=== PATIENT | male | born 1950 | race Caucasian/White ===

== ENCOUNTER → 2017-09-10 | Outpatient (CLI) | payer BC, MEDICARE ==
[~2017-09-10] MED LIST: ALPR1TAB7 PO; ASCO-262 PO; ASCO1TAB12 PO; ASPI-983 PO; ATOR40TA70 PO; CHOL10007 PO; CRAN400T3 PO; FLUT16SP22 NS; LISI10TA2 PO; MELO15TA39 PO; MULT-35 PO; MULT-974 PO; OMEP20CA12 PO; OMEP20TA33 PO; PRED5DRO17 OU; SAW450CA7 PO; TAMS0.4C98 PO; TURM500C7 PO; TURM538C PO
== END ==
LOC: CARD 09:23
PROVIDERS: ATTEND Internal Medicine Interventional Cardiology
DX: R07.9 Chest pain, unspecified (principal); I10 Essential (primary) hypertension; R06.02 Shortness of breath; I08.0 Rheumatic disorders of both mitral and aortic valves
CPT/HCPCS: 93306

== ENCOUNTER 2017-10-15 08:26 | Day surgery (SDC) | payer BC, MEDICARE ==
[2017-10-15] VITALS (8 sets, daily range): BP systolic 137–165; BP diastolic 78–87
[~2017-10-15] VITALS: Ht 167.6 cm; Wt 77.1 kg
[~2017-10-15 08:26] MED LIST changes: -ALPR1TAB7 PO; -ASCO-262 PO; -ASCO1TAB12 PO; -ASPI-983 PO; -ATOR40TA70 PO; -CHOL10007 PO; -FLUT16SP22 NS; -LISI10TA2 PO; -MULT-35 PO; -OMEP20CA12 PO; -PRED5DRO17 OU; -TAMS0.4C98 PO; -TURM538C PO
[2017-10-15] MEDS ORDERED: HEParin (CATH LAB) 1,000 ML IV ONE (08:29)
[2017-10-15] MEDS ORDERED: NS IV 1000 ML 1,000 ML ONE (08:29)
[2017-10-15] MEDS ORDERED: LIDOCAINE 1% INJ 20 ML 20 ML VIAL ONE (08:29)
--- OUTSIDE RECORDS SUMMARY | 2017-10-15 08:29 | XMS REPORT | Continuity of Care Document ---
Author Author [facility] Organization [facility] Address Unknown Phone Unavailable Allergies Active Description Code Type Severity Reaction Onset Reported/Identified Relationship to Patient Clinical Status Yes No Known Drug Allergies [id number] Drug Allergy Unknown N/A 02/28/2016 Medications There is no data. Problems Date Dx Coded Attending Type Code Diagnosis Diagnosed By 10/09/2014 Ot 715.36 10/09/2014 Ot 717.3 10/09/2014 Ot 719.06 10/09/2014 Ot 715.36 10/09/2014 Ot 717.3 10/09/2014 Ot 719.06 10/09/2014 Ot 715.36 10/09/2014 Ot 717.3 10/09/2014 Ot 719.06 10/10/2014 JULIA VICKERS, BRENNA R Ot 414.00 10/10/2014 JULIA VICKERS, BRENNA R Ot 719.45 11/07/2014 JULIA VICKERS, BRENNA R Ot 414.00 11/07/2014 JULIA VICKERS, BRENNA R Ot 719.45 11/07/2014 JULIA VICKERS, BRENNA R Ot 719.45 11/07/2014 JULIA VICKERS, BRENNA R Ot 729.5 06/20/2015 Ot 715.36 06/20/2015 Ot 717.3 06/20/2015 Ot 719.06 06/20/2015 JULIA VICKERS, BRENNA R Ot 414.00 06/20/2015 JULIA VICKERS, BRENNA R Ot 719.45 06/20/2015 JULIA VICKERS, BRENNA R Ot 719.45 06/20/2015 JULIA VICKERS, BRENNA R Ot 729.5 02/28/2016 USMAN VICKERS, WENCESLAO Enriquez Ot S01.81XA LACERATION W/O FOREIGN BODY OF OTH PART 02/28/2016 USMAN VICKERS, WENCESLAO Enriquez Ot S86.812A STRAIN OF MUSC/TEND AT LOWER LEG LEVEL, 02/28/2016 WENCESLAO MARY MD Ot W22.09XA STRIKING AGAINST OTHER STATIONARY OBJECT 02/28/2016 WENCESLAO MARY MD Ot Y92.512 SUPERMARKET, STORE OR MARKET PLACE 02/28/2016 WENCESLAO MARY MD Ot Y93.02 ACTIVITY, RUNNING 02/28/2016 WENCESLAO MARY MD Ot Y99.0 CIVILIAN ACTIVITY DONE FOR INCOME OR PAY 02/28/2016 BRENNA DUMONT MD R Ot 414.00 CORON ATHEROSCLER NOS TYPE VESSEL, NATIV 02/28/2016 BRENNA DUMONT MD R Ot 719.45 JOINT PAIN-PELVIS 02/28/2016 BRENNA DUMONT MD R Ot 719.45 JOINT PAIN-PELVIS 02/28/2016 BRENNA DUMONT MD R Ot 729.5 PAIN IN LIMB 02/29/2016 WENCESLAO MARY MD Ot S01.81XA LACERATION W/O FOREIGN BODY OF OTH PART 02/29/2016 WENCESLAO MARY MD Ot S86.812A STRAIN OF MUSC/TEND AT LOWER LEG LEVEL, 02/29/2016 WENCESLAO MARY MD Ot W22.09XA STRIKING AGAINST OTHER STATIONARY OBJECT 02/29/2016 WENCESLAO MARY MD Ot Y92.512 SUPERMARKET, STORE OR MARKET PLACE 02/29/2016 WENCESLAO MARY MD Ot Y93.02 ACTIVITY, RUNNING 02/29/2016 WENCESLAO MARY MD Ot Y99.0 CIVILIAN ACTIVITY DONE FOR INCOME OR PAY 03/07/2016 BRENNA DUMONT MD R Ot 414.00 CORON ATHEROSCLER NOS TYPE VESSEL, NATIV 03/07/2016 BRENNA DUMONT MD R Ot 719.45 JOINT PAIN-PELVIS 03/07/2016 BRENNA DUMONT MD R Ot 719.45 JOINT PAIN-PELVIS 03/07/2016 BRENNA DUMONT MD R Ot 729.5 PAIN IN LIMB 03/07/2016 BRENNA DUMONT MD R Ot 414.00 CORON ATHEROSCLER NOS TYPE VESSEL, NATIV 03/07/2016 SEGLIE MD, BRENNA R Ot 719.45 JOINT PAIN-PELVIS 03/07/2016 BRENNA DUMONT MD R Ot 719.45 JOINT PAIN-PELVIS 03/07/2016 BRENNA DUMONT MD R Ot 729.5 PAIN IN LIMB 11/28/2016 JULIA VICKERS, BRENNA R Ot 414.00 CORON ATHEROSCLER NOS TYPE VESSEL, NATIV 11/28/2016 BRENNA DUMONT MD R Ot 719.45 JOINT PAIN-PELVIS 11/28/2016 BRENNA DUMONT MD R Ot 719.45 JOINT PAIN-PELVIS 11/28/2016 BRENNA DUMONT MD R Ot 729.5 PAIN IN LIMB 08/26/2017 BRENNA DUMONT MD R Ot 414.00 CORON ATHEROSCLER NOS TYPE VESSEL, NATIV 08/26/2017 BRENNA DUMONT MD R Ot 719.45 JOINT PAIN-PELVIS 08/26/2017 BRENNA DUMONT MD R Ot 719.45 JOINT PAIN-PELVIS 08/26/2017 BRENNA DUMONT MD R Ot 729.5 PAIN IN LIMB 09/07/2017 BRENNA DUMONT MD R Ot 414.00 CORON ATHEROSCLER NOS TYPE VESSEL, NATIV 09/07/2017 BRENNA DUMONT MD R Ot 719.45 JOINT PAIN-PELVIS 09/07/2017 BRENNA DUMONT MD R Ot 719.45 JOINT PAIN-PELVIS 09/07/2017 BRENNA DUMONT MD R Ot 729.5 PAIN IN LIMB 09/07/2017 BRENNA DUMONT MD R Ot 414.00 CORON ATHEROSCLER NOS TYPE VESSEL, NATIV 09/07/2017 BRENNA DUMONT MD R Ot 719.45 JOINT PAIN-PELVIS 09/07/2017 BRENNA DUMONT MD R Ot 719.45 JOINT PAIN-PELVIS 09/07/2017 BRENNA DUMONT MD R Ot 729.5 PAIN IN LIMB 09/10/2017 BRENNA DUMONT MD R Ot 414.00 CORON ATHEROSCLER NOS TYPE VESSEL, NATIV 09/10/2017 SUSHMA DUMONT MDYD R Ot 719.45 JOINT PAIN-PELVIS 09/10/2017 BRENNA DUMONT MD R Ot 719.45 JOINT PAIN-PELVIS 09/10/2017 BRENNA DUMONT MD R Ot 729.5 PAIN IN LIMB 09/11/2017 Aileen CAPONE MD Ot I08.0 RHEUMATIC DISORDERS OF BOTH MITRAL AND A 09/11/2017 Aileen CAPONE MD Ot I10 ESSENTIAL (PRIMARY) HYPERTENSION 09/11/2017 Aileen CAPONE MD Ot R06.02 SHORTNESS OF BREATH 09/11/2017 Aileen CAPONE MD Ot R07.9 CHEST PAIN, UNSPECIFIED 09/11/2017 Aileen CAPONE MD Ot I08.0 RHEUMATIC DISORDERS OF BOTH MITRAL AND A 09/11/2017 Aileen CAPONE MD Ot I10 ESSENTIAL (PRIMARY) HYPERTENSION 09/11/2017 Aileen CAPONE MD Ot R06.02 SHORTNESS OF BREATH 09/11/2017 Aileen CAPONE MD Ot R07.9 CHEST PAIN, UNSPECIFIED 09/23/2017 Aileen CAPONE MD Ot I08.0 RHEUMATIC DISORDERS OF BOTH MITRAL AND A 09/23/2017 Aileen CAPONE MD Ot I10 ESSENTIAL (PRIMARY) HYPERTENSION 09/23/2017 Aileen CAPONE MD Ot R06.02 SHORTNESS OF BREATH 09/23/2017 Aileen CAPONE MD Ot R07.9 CHEST PAIN, UNSPECIFIED Procedures There is no data. Results There is no data. Encounters ACCT No. Visit Date/Time Discharge Status Pt. Type Provider Facility Loc./Unit Complaint [id number] 09/10/2017 09:23:00 09/10/2017 23:59:59 CLS Outpatient Aileen CAPONE MD [facility] CARD I35.0 AORTIC STENOSIS [id number] 03/14/2016 10:01:00 03/14/2016 23:59:59 CLS Outpatient TATIANNA RODRIGUEZ LACQUER MAKER [facility] RAD SPRAIN LT KNEE [id number] 03/11/2016 14:53:00 03/11/2016 23:59:59 CLS Outpatient JENNIFER TATIANNA LACQUER MAKER [facility] OCC FELL [id number] 02/28/2016 06:05:00 02/28/2016 07:06:00 DIS Emergency USMAN VICKERS, WENCESLAO Enriquez [facility] ER LAC ON RT BROW,LEFT KNEE PAIN [id number] 10/11/2014 14:13:00 10/11/2014 23:59:59 CLS Outpatient BRENNA DUMONT MD [facility] RAD RT HIP/LEG PAIN SEVERE [id number] 10/09/2014 14:59:00 10/09/2014 23:59:59 CLS Outpatient BRENNA DUMONT MD [facility] CARD LOW PERCENTAGE OF SYSTOLIC , PAIN IN RT HIP [id number] 10/15/2017 10:00:00 PEN Preadmit Aileen CAPONE MD [facility] CATH SYMPTOMATIC SEVER AORTIC STENOSIS [id number] 03/21/2010 11:46:00 Document Registration
[2017-10-15] MEDS ORDERED: NS IV 1000 ML 1,000 ML IV SCH ×2 (09:00→12:20)
[2017-10-15 09:05] LABS: HEMOGLOBIN 13.7 G/DL (13.3-17.7); RED BLOOD COUNT 4.57 10^6/uL (4.35-5.85)
[2017-10-15 09:06] LABS: RED CELL DISTRIBUTION WIDTH 12.5 % (10.0-14.5)
[2017-10-15 09:13] LABS: PROTHROMBIN TIME PATIENT 13.2 SEC (12.2-14.7)
[2017-10-15] MEDS ORDERED: PRED5DRO17 OU (09:16)
[2017-10-15] MEDS ORDERED: LISI10TA2 PO (09:16)
[2017-10-15] MEDS ORDERED: ASCO-262 PO (09:16)
[2017-10-15] MEDS ORDERED: CHOL10007 PO (09:16)
[2017-10-15] MEDS ORDERED: TURM538C PO (09:16)
[2017-10-15] MEDS ORDERED: ASCO1TAB12 PO (09:16)
[2017-10-15] MEDS ORDERED: MULT-35 PO (09:19)
[2017-10-15] MEDS ORDERED: MELO15TA39 PO (09:19)
[2017-10-15] MEDS ORDERED: ALPR1TAB7 PO (09:19)
[2017-10-15] MEDS ORDERED: OMEP20CA12 PO (09:19)
[2017-10-15] MEDS ORDERED: TAMS0.4C98 PO (09:19)
[2017-10-15] MEDS ORDERED: FLUT16SP22 NS (09:19)
[2017-10-15 09:20] LABS: ALANINE AMINOTRANSFERASE 20 U/L (0-55); ALBUMIN 4.4 GM/DL (3.2-4.5); ALKALINE PHOSPHATASE 54 U/L (40-136); BILIRUBIN,TOTAL 0.7 MG/DL (0.1-1.0); BUN/CREATININE RATIO 14; CALCIUM 9.5 MG/DL (8.5-10.1); CARBON DIOXIDE 24 MMOL/L (21-32); CHLORIDE 106 MMOL/L (98-107); CHOLESTEROL 195 MG/DL (< 200); CREATININE SERUM 0.92 MG/DL (0.60-1.30); GFR ESTIMATED > 60; GLUCOSE 88 MG/DL (70-105); HDL CHOLESTEROL 43 MG/DL (40-60); POTASSIUM 4.5 MMOL/L (3.6-5.0); SODIUM 140 MMOL/L (135-145); TOTAL PROTEIN 7.6 GM/DL (6.4-8.2); TRIGLYCERIDES 80 MG/DL (<150); VLDL CHOLESTEROL 16 MG/DL (5-40)
[2017-10-15] MEDS ORDERED: ADENOSINE 3 MG/1 ML (ADENOSCAN) 30ML VIAL IV ONE (10:27)
--- NOTE | 2017-10-15 11:39 | Cardiac Procedure Note-CS/ASA ---
Pre-Procedure Note Pre-Op Procedure Note H&P Reviewed The H&P was reviewed, patient examined and no changes noted. Date H&P Reviewed: October 15, 2017 Time H&P Reviewed: 09:15 Conscious Sedation Pre-Proced Time Reviewed: 09:15 ASA Class: 3 Airway Mallampati Classification: ([place] appropriate class) I. II. III, IV Lungs Heart ASA score ASA 1: a normal healthy patient ASA 2: a patient with a mild systemic disease (mid diabetes, controlled hypertension, obesity ASA 3: a patient with a severe systemic disease that limits activity (angina , COPD, prior Myocardial infarction) ASA 4: a patient with an incapacitating disease that is a constant threat to life (CHF, renal failure) ASA 5: a moribund patient not expected to survive 24 hrs. (ruptured aneurysm) ASA 6: a declared brain patient whose organs are being harvested. For emergent operations, add the letter E after the classification Grade 1 Sedation Plan: Analgesia, Amnesia, Plan communicated to team members, Discussed options with patient/fam, Discussed risks with patient/fam Note The patient is an appropriate candidate to undergo the planned procedure, sedation, and anesthesia. The patient immediately re-assessed prior to indication. Aileen CAPONE MD October 15, 2017 11:39 am
--- NOTE | 2017-10-15 11:48 | Coronary Angiography Report ---
Coronary Angiography Report DATE OF PROCEDURE: 10/15/17 INDICATION: Severe aortic stenosis, precardiac surgery evaluation. PREOPERATIVE DIAGNOSIS: Severe aortic stenosis, precardiac surgery evaluation. POSTOPERATIVE DIAGNOSIS: Severe aortic stenosis, severe 2 vessel disease. HISTORY: This is a 67-year-old gentleman with complain of burning in the chest and shortness of breath. Echocardiogram showed severe aortic stenosis. Coronary angiography is recommended for preoperative evaluation. Therefore, the patient was scheduled for coronary angiography. PROCEDURES PERFORMED: 1.Coronary angiography. 2.Left heart catheterization. 3. Aortic arch angiography for suitability of bypass grafts. 4. FFR to the LAD. COMPLICATIONS: None. SPECIMENS: None. ESTIMATED BLOOD LOSS: 10 mL ANESTHESIA: Conscious sedation ANTICOAGULATION: IV heparin CONTRAST: 141 mL. FLUOROSCOPY: 14.5 minutes. FLOUROSCOPY DOSE: 630 mgy. PROCEDURE DETAILS: The patient is a 67 male and was brought to the geoscience laboratory technician after informed consent was taken. All the risks and complications were explained in detail; this included the risk of bleeding, vascular damage, stroke , CT and even . The patient was draped and prepped in the usual sterile fashion. Access was gained in the right radial artery with a 6 Welsh sheath. Left coronary angiography was performed with the Mannford catheter. Right coronary angiography, aortic arch angiography and left heart catheterization were performed with the JR4 catheter. FINDINGS: 1.Left main: Patent. 2.LAD: Moderate to severe ostial LAD stenosis. Stenosis severity is 75 percent. There is another moderate to severe stenosis in the midsegment. Stenosis severity is 70 percent. Transapical vessel. 3.Left circumflex artery: Ramus intermedius is patent. First OM has severe stenosis. Stenosis severity is 95 percent. 4.RCA: Mild to moderate mid disease. Moderate to severe distal PDA stenosis. 5.Left heart catheterization: Aortic pressure 122/61 mmHg. LV pressure 185/7 mmHg. LVEDP 22 mmHg. Normal LV function with no wall motion abnormalities. Significant gradient across the aortic valve. Mean gradient of 74 mmHg. 6. Aortic arch angiography was performed to rule out aneurysm and suitability of bypass grafts. No aneurysm or dissection noted. Patent proximal segments of the large arteries including brachiocephalic, left common carotid artery and left subclavian artery. Recommendations: FFR to the LAD is recommended. FFR details: Mannford catheter 6 Welsh, IV heparin and pressure wire. ACT was performed once with ACT of over 192 seconds. 1000 units of IV heparin was given immediately after. Initially 4800 units of IV heparin were given. The lesions were easily crossed with a FFR wire. The FFR wire was placed in the distal LAD. Baseline FFR was 0.91. Adenosine was started at 140 g per KG per minute for 2-1/2 minutes. Lowest FFR was 0.80 which is significant. The wire was withdrawn and post FFR angiography did not show any vascular complication. The patient tolerated the procedure well and did not have any complications. Vascular band was placed at the site of the right radial artery. CONCLUSIONS: 1. Severe aortic stenosis and severe LAD and first OM stenosis. 2. Cardiac surgery evaluation. Luisito Elizondo MD, FACP, FACC, [facility] Interventional Cardiology Aileen ELIZONDO MD October 15, 2017 11:48 am
--- NOTE | 2017-10-15 11:50 | Discharge Inst-Post CATH ---
Discharge Inst-CATH Post Cardiac Cath D/C Inst Follow Up/Plan Dr. Elizondo - one month after surgery. CARDIAC CATH DISCHARGE INSTRUCTIONS *Hold Metformin for 48 hours post heart cath. ACTIVITY * Go Home directly and rest. * Limit activity of the leg (or wrist if it was used) for 7 days including aerobics, swimming, jogging, bicycling, etc. * Restrict stair-climbing for 7 days if possible, if not, climb up with your non -cath leg, then bring together on the same step. * Avoid lifting, pushing, pulling or excessive movement of the affected extremity for 7 days. * Customary sexual activity may be resumed after 2 days-use caution not to use a position that strains or causes pain to the affected extremity. * No driving for 24 hours. * NO SMOKING. * Avoid straining for bowel movements for 7 days. * Gentle walking on level ground is allowed. * Returning to work will depend on the type of procedure and the results. Your doctor will discuss this with you. CALL YOUR DOCTOR FOR ANY OF THE FOLLOWING: *If bleeding from the puncture site occurs- Apply gentle pressure to site with clean cloth and call your doctor or EMS. * If a knot or lump forms under the skin, increases in size, or causes pain. * If bruising appears to be worsening or moving further down your leg instead of disappearing. * Temperature above 101 F. CARE OF YOUR GROIN INCISION; * Bruising or purple discoloration of the skin near the puncture site is common. * You may shower only, no bathtub bathing for 5 days. Be careful to avoid slipping as your leg may feel stiff. * If a closure device was used on your femoral artery, please see the attached guide regarding care of the device and your leg. * REMOVE the dressing from your groin the next day after your procedure in the shower. CARE OF YOUR WRIST INCISION; * Bruising or purple discoloration of the skin near the puncture site is common. * You may shower. * DO NOT submerge wrist. * Remove dressing in 24 hours. Aileen ELIZONDO MD October 15, 2017 11:50 am
[2017-10-15] MEDS ORDERED: ATOR40TA70 PO (11:51)
[2017-10-15] MEDS ORDERED: ASPI-983 PO (11:52)
--- NOTE | 2017-10-15 11:59 | Cardiology Discharge Summary ---
Diagnosis/Chief Complaint Date of Admission 10/15/2017 Date of Discharge 10/15/2017 Admission Diagnosis Severe aortic stenosis Final/Discharge Diagnosis Severe aortic stenosis, severe 2 vessel CAD. Chief Complaint/HPI Chief Complaint/HPI This is a 67-year-old gentleman with complains of shortness of breath and chest burning. Echocardiogram showed severe aortic stenosis. Coronary angiography is recommended pre-cardiac surgery. Discharge Summary Procedures Coronary angiography shows moderate to severe LAD stenosis, severe by FFR. FFR 0.80. Severe first OM artery stenosis. Stenosis severity 95 percent. Mild to moderate mid RCA disease. Severe aortic stenosis. Normal LV function Discharge Physical Examination Normal cardiovascular examination. Normal respiratory examination. Hospital Course Unremarkable. Pending Labs Laboratory Tests 10/15/17 08:53: White Blood Count 5.0, Red Blood Count 4.57, Hemoglobin 13.7, Hematocrit 40, Mean Corpuscular Volume 88, Mean Corpuscular Hemoglobin 30, Mean Corpuscular Hemoglobin Concent 34, Red Cell Distribution Width 12.5, Platelet Count 259, Mean Platelet Volume 10.0, Prothrombin Time 13.2, INR Comment 1.0, Activated Partial Thromboplast Time 31, Sodium Level 140, Potassium Level 4.5, Chloride Level 106, Carbon Dioxide Level 24, Anion Gap 10, Blood Urea Nitrogen 13, Creatinine 0.92, Estimat Glomerular Filtration Rate > 60, BUN/Creatinine Ratio 14, Glucose Level 88, Calcium Level 9.5, Total Bilirubin 0.7, Aspartate Amino Transf (AST/SGOT) 19, Alanine Aminotransferase (ALT/SGPT) 20, Alkaline Phosphatase 54, Total Protein 7.6, Albumin 4.4, Triglycerides Level 80, Cholesterol Level 195, LDL Cholesterol Direct 145, VLDL Cholesterol 16, HDL Cholesterol 43 Discussion & Recommendations Discussion Discharge instructions discussed at length with the patient and family. Patient will be started on aspirin, statin. Continue lisinopril. Beta jamie will not be given since patient was borderline hypotensive. Already on lisinopril. Dicharge Diet: Cardiac Diet Activity as Tolerated: Yes Home Medications Reviewed patient Home Medication Reconciliation performed by pharmacy medication reconciliations geology technician and/or nursing. Patients Allergies have been reviewed. Discharge Home Medications: Reviewed and agree with Discharge Medication list on patient's Discharge Instruction sheet Condition at discharge stable Instructions to patient/family Dr. Elizondo - one month after surgery. Aileen ELIZONDO MD October 15, 2017 11:59 am
[2017-10-15] MEDS ORDERED: PATIENT MAY USE OWN MEDS, ALL PO SCH (12:30)
== END 2017-10-15 13:49 | disposition home or self-care (01) ==
LOC: CATH 08:26 → SURG 11:37 → CATH 13:49
PROVIDERS: ATTEND Internal Medicine Interventional Cardiology
DX: I25.10 Atherosclerotic heart disease of native coronary artery without angina pectoris (principal); I35.0 Nonrheumatic aortic (valve) stenosis; I10 Essential (primary) hypertension; I34.0 Nonrheumatic mitral (valve) insufficiency; F12.90 Cannabis use, unspecified, uncomplicated; M19.91 Primary osteoarthritis, unspecified site; Z79.82 Long term (current) use of aspirin; Z79.899 Other long term (current) drug therapy
CPT/HCPCS: 36415; 36430; 80053; 80061; 85027; 85347; 85610; 85730; 87081; 93005; 93459

== ENCOUNTER 2018-03-22 10:11 | Outpatient (RCR) | payer BC, MEDICARE ==
[~2018-03-22 10:11] MED LIST changes: +ALPR1TAB7 PO; +ASCO-262 PO; +ASCO1TAB12 PO; +ASPI-983 PO; +ATOR40TA70 PO; +CHOL10007 PO; +FLUT16SP22 NS; +LISI10TA2 PO; +MULT-35 PO; +OMEP20CA12 PO; +PRED5DRO17 OU; +TAMS0.4C98 PO; +TURM538C PO
== END 2018-03-28 | disposition home or self-care (01) ==
LOC: CR 10:11
PROVIDERS: ATTEND Internal Medicine Interventional Cardiology
DX: Z48.812 Encounter for surgical aftercare following surgery on the circulatory system (principal); Z95.1 Presence of aortocoronary bypass graft; Z95.2 Presence of prosthetic heart valve
CPT/HCPCS: 93798

== ENCOUNTER 2018-04-30 09:30 | Outpatient (RCR) | payer BC, MEDICARE | END 2018-05-19 | disposition home or self-care (01) | LOC: CR 09:30 | PROVIDERS: ATTEND Internal Medicine Interventional Cardiology | DX: Z48.812 Encounter for surgical aftercare following surgery on the circulatory system (principal); Z95.1 Presence of aortocoronary bypass graft; Z95.2 Presence of prosthetic heart valve ==

== ENCOUNTER → 2018-10-28 | Outpatient (CLI) | payer BC, MEDICARE | LOC: CARD 09:23 | PROVIDERS: ATTEND Internal Medicine Interventional Cardiology | DX: I35.0 Nonrheumatic aortic (valve) stenosis (principal); I25.10 Atherosclerotic heart disease of native coronary artery without angina pectoris; I10 Essential (primary) hypertension | CPT/HCPCS: 93306 ==

== ENCOUNTER → 2019-10-28 | Outpatient (CLI) | payer MEDICARE, OTHER ==
[~2019-10-28] MED LIST changes: -OMEP20CA12 PO; +OMEP20CA18 PO; -TAMS0.4C98 PO; +TMSL.4C PO
--- NOTE | 2019-10-28 11:55 | Diagnostic Imaging Report ---
PROCEDURE: US carotid duplex, bilateral. TECHNIQUE: Multiple real-time grayscale images were obtained over the carotid arteries in various projections, bilaterally. Additional spectral analysis and color Doppler duplex images were also obtained. INDICATION: Coronary artery disease, left-sided bruit. FINDINGS: There are scattered calcified plaques in the bilateral common and internal carotid arteries. There is maintenance of normal color Doppler blood flow throughout both carotid systems. No focal velocity acceleration or deceleration. No findings of a hemodynamic significant stenosis. The vertebral flow is in the normal antegrade direction bilaterally. IMPRESSION: [id number] degrees of scattered calcified carotid plaques did not result in hemodynamically significant stenosis Parameters based on the consensus panel Davis-Scale and Doppler ultrasound criteria published March 2003, Radiology, Volume 229. DOPPLER (peak systolic velocity M/S Right Left CCA .73 .96 ICA Proximal .72 1.92 ICA Mid 1.15 1.44 ICA Distal .95 1.52 RATIO 1.6 2.0 ECA 1.3 2.2 VERT .64 .68 Dictated by: Dictated on workstation # [id number]
== END ==
LOC: RAD 08:36
PROVIDERS: ATTEND Family Medicine
DX: I65.22 Occlusion and stenosis of left carotid artery (principal); R09.89 Other specified symptoms and signs involving the circulatory and respiratory systems
CPT/HCPCS: 93880

== ENCOUNTER → 2020-02-17 | Outpatient (CLI) | payer MEDICARE, OTHER ==
[~2020-02-17] MED LIST changes: +ASPI-1238 PO; -ASPI-983 PO
--- NOTE | 2020-02-17 17:43 | NUR ---
Notified patient of positive COVID educated on isolation and quarantine. Answered questions.
== END ==
LOC: LABNPT 05:49
PROVIDERS: ATTEND Family Medicine
DX: U07.1 COVID-19 (principal); J06.9 Acute upper respiratory infection, unspecified
CPT/HCPCS: 87635

== ENCOUNTER → 2020-12-20 | Outpatient (CLI) | payer MEDICARE, OTHER ==
[~2020-12-20] MED LIST changes: -LISI10TA2 PO; +LISI10TA25 PO
== END ==
LOC: CARD 14:00
PROVIDERS: ATTEND Internal Medicine Cardiovascular Disease
DX: I35.0 Nonrheumatic aortic (valve) stenosis (principal)
CPT/HCPCS: 93306

== ENCOUNTER → 2021-09-23 | Outpatient (CLI) | payer MEDICARE, OTHER ==
--- NOTE | 2021-09-23 13:58 | Diagnostic Imaging Report ---
PROCEDURE: US carotid duplex, bilateral. TECHNIQUE: Multiple Real-time grayscale images were obtained over the carotid arteries in various projections bilaterally. Additional spectral analysis and color Doppler duplex images were also obtained. INDICATION: R09.89 FINDINGS: There is moderate plaque in the bilateral carotid systems. There is some velocity elevation in the proximal left internal carotid artery reaching 197 cm/s. This is consistent with a 50-69% diameter stenosis. Velocities in the right carotid system are unremarkable. There is antegrade flow in both vertebral arteries. IMPRESSION: Moderate bilateral carotid plaque. Velocity measurements in the proximal left ICA are consistent with an approximately 50-69% diameter stenosis. Parameters based on the consensus panel Davis-Scale and Doppler ultrasound criteria published March 2003, Radiology, Volume 229. DOPPLER (peak systolic velocity M/S Right Left CCA .80 1.08 ICA Proximal .86 1.97 ICA Mid 1.08 .94 ICA Distal 1.03 .82 RATIO 1.34 1.82 ECA 2.56 1.68 VERT .81 .97 Dictated by: Dictated on workstation # [id number]
== END ==
LOC: RAD 12:30
PROVIDERS: ATTEND Family Medicine
DX: I65.23 Occlusion and stenosis of bilateral carotid arteries (principal)
CPT/HCPCS: 93880

== ENCOUNTER → 2021-12-24 | Outpatient (CLI) | payer MEDICARE, OTHER | LOC: CARD 08:30 | PROVIDERS: ATTEND Internal Medicine Cardiovascular Disease | DX: I08.3 Combined rheumatic disorders of mitral, aortic and tricuspid valves (principal) | CPT/HCPCS: 93306 ==

== ENCOUNTER 2022-01-24 15:03 | Emergency (ER) | payer MEDICARE, OTHER ==
[~2022-01-24] VITALS: Ht 162.6 cm; Wt 78.5 kg
[2022-01-24 15:39] LABS: BASOPHILS # (AUTO) 0.1 10^3/uL (0.0-0.1); BASOPHILS % (AUTO) 1 % (0-10); EOSINOPHILS # (AUTO) 0.3 10^3/uL (0.0-0.3); EOSINOPHILS % (AUTO) 5 % (0-10); HEMATOCRIT 39 % (40-54); HEMOGLOBIN 12.9 g/dL (13.3-17.7); LYMPHOCYTES # (AUTO) 1.4 10^3/uL (1.0-4.0); LYMPHOCYTES % (AUTO) 22 % (12-44); MEAN CORPUSCULAR HEMOGLOBIN 30 pg (25-34); MEAN CORPUSCULAR HGB CONC 33 g/dL (32-36); MEAN CORPUSCULAR VOLUME 91 fL (80-99); MEAN PLATELET VOLUME 10.3 fL (9.0-12.2); MONOCYTES # (AUTO) 0.5 10^3/uL (0.0-1.0); MONOCYTES % (AUTO) 8 % (0-12); NEUTROPHILS # (AUTO) 3.9 10^3/uL (1.8-7.8); NEUTROPHILS % (AUTO) 63 % (42-75); PLATELET COUNT 228 10^3/uL (130-400); WHITE BLOOD COUNT 6.2 10^3/uL (4.3-11.0)
--- NOTE | 2022-01-24 15:39 | ED Cardiac General ---
History of Present Illness General Chief Complaint: Cardiac/General Problems Stated Complaint: ELEVATED BP/HEADACHE Source: patient Exam Limitations: no limitations History of Present Illness Date Seen by Provider: Jan 24, 2022 Time Seen by Provider: 15:37 Initial Comments To ER with high blood pressure and headache. Typically his blood pressure runs in the 130s over 80s. At home he was 180s over 90s. Here he is 221/97. Denies chest pain or shortness of breath. Denies headache now. Earlier today he did have a headache and noticed a bit of confusion. Those symptoms lasted for about 1 hour before resolving spontaneously. No history of this. He takes carvedilol twice a day. He follows with Dr. Etienne. History of coronary artery disease status post three-vessel bypass. He drinks 3-4 beers every night and had his usual amount last night. He smokes marijuana daily. He did notice some tingling in his right hand (nothing in the right forearm or upper arm) a few hours ago while he had it doing some computer work slightly elevated. History of carpal tunnel syndrome with carpal tunnel release bilaterally and he has had this tingling in this right hand previously intermittently. Timing/Duration: 4-6 hours, changing over time NTG SL CAR PAINTER: No ASA po CAR PAINTER: No Associated Systoms: Headaches Allergies and Home Medications Allergies Coded Allergies: No Known Drug Allergies (Unverified , 02/28/16) Patient Home Medication List Home Medication List Reviewed: Yes Alprazolam (Alprazolam) 1 Mg Tablet, 0.5 MG PO HS, (Reported) Entered as Reported by: DAVID AGUILERA on 10/15/17 0919 Ascorbate Calcium/Bioflavonoid (Moon-C 500 mg Tablet) 1 Each Tablet, 1 TAB PO DAILY, (Reported) Entered as Reported by: DAVID AGUILERA on 10/15/17 0916 Aspirin (Aspirin EC) 81 Mg Tablet., 81 MG PO DAILY Prescribed by: Aileen CAPONE on 10/15/17 1152 Atorvastatin Calcium (Atorvastatin Calcium) 40 Mg Tablet, 40 MG PO DAILY Prescribed by: Aileen CAPONE on 10/15/17 1151 Cholecalciferol (Vitamin D3) (Vitamin D3) 1,000 Unit Capsule, 1,000 UNIT PO DAILY, (Reported) Entered as Reported by: DAVID AGUILERA on 10/15/17915 Cranberry Fruit (Cranberry) 400 Mg Tablet, 400 MG PO DAILY, (Reported) Entered as Reported by: ANAYA TURNER on 02/28/16622 Fluticasone Propionate (Fluticasone Propionate) 16 Gm [place].susp, 1 SPRAY NS DAILY, (Reported) Entered as Reported by: DAVID AGUILERA on 10/15/17918 Lisinopril (Lisinopril) 10 Mg Tablet, 10 MG PO DAILY, (Reported) Entered as Reported by: DAVID AGUILERA on 10/15/17915 Meloxicam (Meloxicam) 15 Mg Tablet, 15 MG PO DAILY, (Reported) Entered as Reported by: DAVID AGUILERA on 10/15/17918 Multivitamin (Daily Multiple Vitamin) 1 Each Tablet, 1 TAB PO DAILY, (Reported) Entered as Reported by: DAVID AGUILERA on 10/15/17918 Omeprazole (Omeprazole) 20 Mg Capsule.dr, 20 MG PO DAILY, (Reported) Entered as Reported by: DAVID AGUILERA on 10/15/17918 Prednisolone Acetate (Prednisolone Acetate) 5 Ml Drops.susp, 1 DROP OU BID, (Reported) Entered as Reported by: DAVID AGUILERA on 10/15/17915 Saw [place] Fruit (Saw [place]) 450 Mg Capsule, 450 MG PO DAILY, (Reported) Entered as Reported by: ANAYA TURNER on 02/28/16622 Tamsulosin HCl (Flomax) 0.4 Mg Cap, 0.4 MG PO HS, (Reported) Entered as Reported by: DAVID AGUILERA on 10/15/17918 Turmeric Root Extract (Turmeric) 538 Mg Capsule, 538 MG PO DAILY, (Reported) Entered as Reported by: DAVID AGUILERA on 10/15/17915 Review of Systems Review of Systems Constitutional: see HPI EENTM: No Symptoms Reported Respiratory: No Symptoms Reported Cardiovascular: No Symptoms Reported Gastrointestinal: No Symptoms Reported Genitourinary: No Symptoms Reported Musculoskeletal: no symptoms reported Skin: no symptoms reported Psychiatric/Neurological: See HPI, Headache, Paresthesia Endocrine: No Symptoms Reported Hematologic/Lymphatic: No Symptoms Reported Past Wdjehow-Bmyfyk-Klbpdg Hx Immunizations Up To Date Tetanus Booster (TDap): Unknown Seasonal Allergies Seasonal Allergies: No Past Medical History Eye Surgery, Orthopedic Heart Murmur Arthritis Physical Exam Vital Signs Vital Signs - First Documented 01/24/22 15:14 Temp 36.6 Pulse 63 Resp 14 B/P (MAP) 208/100 (136) Pulse Ox 97 Capillary Refill : Height, Weight, BMI Height: 5'6.00" Weight: 170lbs. 0.0oz. [id number]; 27.4 BMI Method:Stated General Appearance: No Apparent Distress, WD/WN HEENT: PERRL/EOMI, TMs Normal Respiratory: Normal Breath Sounds, No Accessory Muscle Use, No Respiratory Distress Cardiovascular: Regular Rate, Rhythm, Normal Peripheral Pulses Gastrointestinal: No Pulsatile Mass, Non Tender, Soft Extremity: Normal Capillary Refill, Normal Inspection Neurologic/Psychiatric: Alert, Oriented x3 Skin: Normal Color, Warm/Dry Progress/Results/Core Measures Results/Orders Lab Results Laboratory Tests Test 01/24/22 15:28 Range/Units White Blood Count 6.2 4.3-11.0 10^3/uL Red Blood Count 4.27 L 4.30-5.52 10^6/uL Hemoglobin 12.9 L 13.3-17.7 g/dL Hematocrit 39 L 40-54 % Mean Corpuscular Volume 91 80-99 fL Mean Corpuscular Hemoglobin 30 25-34 pg Mean Corpuscular Hemoglobin Concent 33 32-36 g/dL Red Cell Distribution Width 12.8 10.0-14.5 % Platelet Count 228 130-400 10^3/uL Mean Platelet Volume 10.3 9.0-12.2 fL Immature Granulocyte % (Auto) 0 % Neutrophils (%) (Auto) 63 42-75 % Lymphocytes (%) (Auto) 22 12-44 % Monocytes (%) (Auto) 8 0-12 % Eosinophils (%) (Auto) 5 0-10 % Basophils (%) (Auto) 1 0-10 % Neutrophils # (Auto) 3.9 1.8-7.8 10^3/uL Lymphocytes # (Auto) 1.4 1.0-4.0 10^3/uL Monocytes # (Auto) 0.5 0.0-1.0 10^3/uL Eosinophils # (Auto) 0.3 0.0-0.3 10^3/uL Basophils # (Auto) 0.1 0.0-0.1 10^3/uL Immature Granulocyte # (Auto) 0.0 0.0-0.1 10^3/uL Sodium Level 139 135-145 MMOL/L Potassium Level 4.4 3.6-5.0 MMOL/L Chloride Level 104 98-107 MMOL/L Carbon Dioxide Level 23 21-32 MMOL/L Anion Gap 12 5-14 MMOL/L Blood Urea Nitrogen 17 7-18 MG/DL Creatinine 0.91 0.60-1.30 MG/DL Estimat Glomerular Filtration Rate 88 BUN/Creatinine Ratio 19 Glucose Level 96 70-105 MG/DL Calcium Level 9.8 8.5-10.1 MG/DL Corrected Calcium 9.6 8.5-10.1 MG/DL Magnesium Level 2.1 1.6-2.4 MG/DL Total Bilirubin 0.9 0.1-1.0 MG/DL Aspartate Amino Transf (AST/SGOT) 21 5-34 U/L Alanine Aminotransferase (ALT/SGPT) 22 0-55 U/L Alkaline Phosphatase 60 40-136 U/L Total Protein 7.6 6.4-8.2 GM/DL Albumin 4.3 3.2-4.5 GM/DL My Orders Orders - MARY JEFFREY [employer] Cbc With Automated Diff (01/24/22 15:33) Comprehensive Metabolic Panel (01/24/22 15:33) Ct Head Wo (01/24/22 15:33) Ekg Tracing (01/24/22 15:33) Magnesium (01/24/22 15:33) Ed Iv/Invasive Line Start (01/24/22 15:33) Clonidine Tablet (Catapres Tablet) (01/24/22 15:45) Ct Angio Head/Neck (01/24/22 16:17) Iohexol Injection (Omnipaque 350 Mg/Ml 1 (01/24/22 16:30) Received Contrast (Hold Metformin- Contr (01/24/22 16:30) Sodium Chloride Flush (Catheter Flush Sy (01/24/22 16:30) Ns (Ivpb) (Sodium Chloride 0.9% Ivpb Bag (01/24/22 16:30) Medications Given in ED Current Medications Medications Dose Ordered Sig/Ora Route Start Time Stop Time Status Last Admin Dose Admin Clonidine HCl 0.2 mg ONCE ONCE PO 01/24/22 15:45 01/24/22 15:46 DC 01/24/22 15:58 0.2 MG Iohexol 100 ml ONCE ONCE IV 01/24/22 16:30 01/24/22 16:31 DC 01/24/22 16:49 75 ML Sodium Chloride 10 ml NEEDED PRN IV 01/24/22 16:30 01/24/22 16:49 10 ML Sodium Chloride 100 ml ONCE ONCE IV 01/24/22 16:30 01/24/22 16:31 DC 01/24/22 16:49 80 ML Vital Signs/I&O 01/24/22 15:14 Temp 36.6 Pulse 63 Resp 14 B/P (MAP) 208/100 (136) Pulse Ox 97 Departure Communication (Admissions) Family Conversation 173-Bp down ton 168/88. No symptoms here during ER stay. Head CT unremarkable, angio head and neck unremarkable. He does have a right upper lobe abnormality on CT needs follow-up CT chest. No symptoms or deficits here. Alert and oriented. He is on aspirin already at home, baby aspirin. Have him follow-up with Dr. Maharaj next week. Spoke with Dr. Cheema who agrees with discharge to home for outpatient follow-up. Differential is hypertensive emergency versus TIA. 1752-discussed with the patient the need for follow-up with primary care to get CT scan of the chest for the abnormal appearance of the right upper lobe. He denies any weight loss, has a chronic cough, non-smoker. He does have a brother with lung cancer. He believes that his symptoms today were related to blood pressure. Though his blood pressure is normally well controlled he lost a close family member yesterday and has a lot of pain in both lower extremities and believes that caused his pressure to rise. NAME: BRYANT FINK [facility] REC#: [id number] PT STATUS: REG ER : 1950 PHYSICIAN: MARY JEFFREY APRN ADMIT DATE: 01/24/22/ER Signed Date of Exam:01/24/22 CT HEAD WO PROCEDURE: CT head without contrast. TECHNIQUE: Multiple contiguous axial images were obtained through the brain without the use of intravenous contrast. Auto Exposure Controls were utilized during the CT exam to meet ALARA standards for radiation dose reduction. INDICATION: Headache, hypertension The ventricles are normal in size, shape and position. There are no masses or hemorrhages. There are no extra-axial fluid collections. There is generalized atrophy. The paranasal sinuses are clear. IMPRESSION: Diffuse cerebral degeneration. No acute abnormality seen. Dictated by: Dictated on workstation # [id number] Dict: 01/24/22 1612 Trans: 01/24/221612 TCB [id number] Interpreted by: PK WARE MD Electronically signed by: PK WARE MD 01/24/22 161 Impression Primary Impression: Hypertensive emergency Disposition: HOME, SELF-CARE Condition: Stable Departure-Patient Inst. Decision time for Depature: 17:38 Referrals: TIFFANY MAHARAJ DO (PCP/Family) Primary Care Physician Patient Instructions: High Blood Pressure Emergencies Add. Discharge Instructions: 1. You can increase your baby aspirin dose to 2 baby aspirin a day until directed otherwise by Dr. MAHARAJ. Follow-up with her next week. On the CT scan of your neck we can see the top part of the right lung which appears to have been infiltrate which can be scar tissue from previous infection such as COVID or pneumonia, current infection (unlikely given absence of fevers or chills, normal blood work that does not suggest infection) or worst-case scenario a cancerous process. This warrants a follow-up with Dr. Maharaj to get a CT scan of your entire chest within the next few weeks to get a better look at all of the lung. I will write you a prescription for clonidine, the medication given here in the emergency room. Take this on an as-needed basis only up to twice a day and only if the top number of your blood pressure goes over about 160. Return to ER promptly for any concerns. Scripts Clonidine HCl (Clonidine HCl) 0.1 Mg Tablet 0.1 MG PO BID PRN for Blood pressure over 160, #10 TAB Prov: MARY JEFFREY APRN 01/24/22 MARY JEFFREY APRN Jan 24, 2022 15:39
[2022-01-24] MEDS ORDERED: cloNIDine 0.1 MG (CATAPRES) TAB PO ONE (15:45)
[2022-01-24 15:59] LABS: ALBUMIN 4.3 GM/DL (3.2-4.5); POTASSIUM 4.4 MMOL/L (3.6-5.0)
[2022-01-24 16:00] LABS: CALCIUM 9.8 MG/DL (8.5-10.1)
[2022-01-24 16:01] LABS: TOTAL PROTEIN 7.6 GM/DL (6.4-8.2)
[2022-01-24 16:03] LABS: BILIRUBIN,TOTAL 0.9 MG/DL (0.1-1.0)
[2022-01-24 16:05] LABS: CREATININE SERUM 0.91 MG/DL (0.60-1.30)
[2022-01-24 16:07] LABS: MAGNESIUM 2.1 MG/DL (1.6-2.4)
--- NOTE | 2022-01-24 16:15 | Diagnostic Imaging Report ---
PROCEDURE: CT head without contrast. TECHNIQUE: Multiple contiguous axial images were obtained through the brain without the use of intravenous contrast. Auto Exposure Controls were utilized during the CT exam to meet ALARA standards for radiation dose reduction. INDICATION: Headache, hypertension The ventricles are normal in size, shape and position. There are no masses or hemorrhages. There are no extra-axial fluid collections. There is generalized atrophy. The paranasal sinuses are clear. IMPRESSION: Diffuse cerebral degeneration. No acute abnormality seen. Dictated by: Dictated on workstation # [id number]
[2022-01-24] MEDS ORDERED: HOLD METFORMIN - RECEIVED CONTRAST 20 ML VIAL IV SCH (16:30)
[2022-01-24] MEDS ORDERED: IOHEXOL 350 MG/ML 100 ML (OMNIPAQUE 350) VIAL IV ONE (16:30)
[2022-01-24] MEDS ORDERED: NS 100 ML (IVPB) BAG IV ONE (16:30)
[2022-01-24] MEDS ORDERED: CATHETER FLUSH 10 ML SYR IV PRN (16:30)
--- NOTE | 2022-01-24 17:13 | Diagnostic Imaging Report ---
INDICATION: Hypertension and headache and altered mental status. TECHNIQUE: Contiguous noncontrast images were obtained from the skull base through the vertex. After intravenous contrast administration, helical CT angiography of the neck was performed. Source data was reformatted into 3D MIP projections. Delayed post contrast acquisition was also obtained. Auto Exposure Controls were utilized during the CT exam to meet ALARA standards for radiation dose reduction. COMPARISON: Comparison made to noncontrast head CT earlier today. CTA NECK FINDINGS: A groundglass opacity is seen in the right upper lobe measuring about 2.[address] for full evaluation. There are postop changes with cervical spine fusion. The thoracic aortic arch is normal in caliber and appearance. Great vessel origins are patent and without stenosis. The common carotid arteries are patent. There is mild eccentric plaquing in the carotid bifurcations, the internal and external carotids are patent and without significant stenosis or dissection. There is tortuosity of the distal internal carotids. The vertebral arteries on both sides appear patent and codominant. There is no vertebral stenosis in the neck region. CTA HEAD FINDINGS: The distal vertebral arteries and basilar artery and posterior cerebral arteries are patent. There is a origin of the right posterior cerebral artery. The distal internal carotid arteries show some eccentric plaquing in the carotid siphons without stenosis. The distal internal carotids show no dissection. The anterior cerebral arteries are patent bilaterally. The middle cerebral arteries and their major branches appear patent on both sides and without stenosis or occlusion. There is no overt aneurysmal disease. The dural venous sinuses are patent. IMPRESSION: CTA neck demonstrates patent carotid and vertebral territories with no significant stenosis or dissection. There is minor plaquing in the carotid bifurcations. There is a 2.1 cm groundglass opacity in the right upper lobe, recommend a full chest CT for further evaluation. CTA head shows no major vessel stenosis or occlusion or aneurysmal disease. Dictated by: Dictated on workstation # [id number]
[2022-01-24] MEDS ORDERED: CLN.1T PO (17:55)
[2022-01-24 18:11] VITALS: BP 137/80
== END 2022-01-24 18:11 | disposition home or self-care (01) ==
LOC: EDUNIT# 15:03 → ER 15:05
DX: I16.1 Hypertensive emergency (principal); Z95.1 Presence of aortocoronary bypass graft; Z79.899 Other long term (current) drug therapy
CPT/HCPCS: 36415; 70450; 70496; 70498; 80053; 83735; 85025; 93005

== ENCOUNTER → 2022-02-06 | Outpatient (CLI) | payer MEDICARE, OTHER ==
[~2022-02-06] MED LIST changes: +CLN.1T PO
--- NOTE | 2022-02-06 11:56 | Diagnostic Imaging Report ---
PROCEDURE: CT chest without contrast. TECHNIQUE: Multiple contiguous axial images were obtained through the chest without the use of intravenous contrast. Auto Exposure Controls were utilized during the CT exam to meet ALARA standards for radiation dose reduction. INDICATION: Abnormal finding in the right upper lobe on CT neck. FINDINGS: The lungs are well aerated. Median sternotomy changes are noted. There is a somewhat spiculated mass in the right upper lobe showing both the solid component and groundglass component. This measures roughly 2 x 2 cm in overall size. There is stranding noted posteriorly to the pleural surface of the lung. The lungs are otherwise clear. No mediastinal or hilar adenopathy of pathologic size. No pleural effusions or pericardial effusions. The adrenal glands are not enlarged. IMPRESSION: Spiculated mass in the right upper lobe. This is suspicious for malignancy in this age group. Recommend possible PET/CT and short-term follow-up. This would be rather difficult location to perform CT biopsy. Dictated by: Dictated on workstation # [id number]
== END ==
LOC: RAD 07:58
PROVIDERS: ATTEND Family Medicine
DX: R91.1 Solitary pulmonary nodule (principal)
CPT/HCPCS: 71250

== ENCOUNTER → 2022-02-17 | Outpatient (CLI) | payer MEDICARE, OTHER ==
--- NOTE | 2022-02-18 15:34 | Diagnostic Imaging Report ---
INDICATION: Abnormal recent chest CT demonstrating a spiculated mass in the right upper lobe. Serum blood glucose level at the time of injection is 96 g/dL. Patient was administered 12.0 mCi F-18 FDG intravenously in the left antecubital location and PET imaging was performed from the top of the skull to mid thighs. Noncontrast CT was also performed for attenuation correction and anatomic correlation. CORRELATION is made with noncontrast chest CT performed 02/06/2022. There is symmetric activity throughout the brain. Soft tissues of the neck are unremarkable. The irregular density noted in the right upper lobe on recent CT demonstrates low level activity with an SUV max of 2.0. No mediastinal or hilar hypermetabolism is identified. Physiologic activity throughout the gastrointestinal and genitourinary tracts is noted. No suspicious hypermetabolism is seen. IMPRESSION: Unremarkable PET/CT study. The irregular density noted in the right upper lobe does show low level activity. Neoplasm is less likely but continued close interval follow-up would be recommended to ensure stability. Dictated by: Dictated on workstation # [id number]
== END ==
LOC: RAD 13:30
PROVIDERS: ATTEND Family Medicine
DX: R91.1 Solitary pulmonary nodule (principal)
CPT/HCPCS: 78815; A9552

== ENCOUNTER → 2022-10-01 | Outpatient (CLI) | payer MEDICARE, OTHER ==
[~2022-10-01] VITALS: Ht 162 cm; Wt 76.0 kg
[~2022-10-01] MED LIST changes: +CATHETER FLUSH 10 ML SYR IVP PRN
[2022-10-01 09:24] VITALS: BP 122/58
--- NOTE | 2022-10-01 16:06 | Cardiology Stress Test Report ---
Stress Test Report Date of Procedure/Referring: Date of Procedure: October 01, 2022 PCP Romina Maharaj DO Admitting Physician Admitting Physician: Attending Physician: Demetris David MD Baseline Heart Rate: 62 Baseline Blood Pressure: Blood Pressure Systolic: 122 Blood Pressure Diastolic: 58 Vital Signs Date Time Temp Pulse Resp B/P (MAP) Pulse Ox O2 Delivery O2 Flow Rate FiO2 10/01/22 09:24 62 122/58 (79) Baseline Vital Signs Vital Signs Date Time Temp Pulse Resp B/P (MAP) Pulse Ox O2 Delivery O2 Flow Rate FiO2 10/01/22 09:24 62 122/58 (79) Baseline EKG: Baseline EKG: NSR Summary: After explaining the procedure and details to the patient, he signed the consent and was brought to the stress nuclear laboratory. Patient exercised on standard Simon protocol, EKG, heart rate and blood pressure were monitored continuously, resting and stress doses of radio tracer were injected, imaging was acquired and reviewed in the short axis, horizontal long axis and vertical long axis views Patient was able to exercise for a total of 7 minutes on Simon protocol, METs 8.5 Maximum heart rate 133 Maximum blood pressure 184/67 Stress EKG, Minimal nondiagnostic changes Recovery EKG, Return to baseline TID: 0.94 SSS: 2 SDS: 0 EF: 64 Conclusion: Good exercise tolerance for 7 minutes on standard Simon protocol, 8.5 METS achieving 91% of maximal expected heart rate Appropriate heart rate response to exercise with hypertensive response to exercise with peak blood pressure 184/67 return to baseline during recovery Nondiagnostic EKG changes with exercise return to baseline during recovery No significant ischemia or infarction noted on SPECT images Normal left ventricular size, ejection fraction 64% Copy Copies To 1: ROMINA MAHARAJ BASHAR J MD October 01, 2022 16:06
== END ==
LOC: CARD 08:25
PROVIDERS: ATTEND Internal Medicine Cardiovascular Disease
DX: I10 Essential (primary) hypertension (principal)
CPT/HCPCS: 78452; 93017; A9502